=== PATIENT | female | born 1995 | race African-American/Black ===

== ENCOUNTER 2019-10-18 03:52 | Emergency (ER) | payer OTHER, SELFPAY ==
--- NOTE | 2019-10-18 03:59 | ED.GENADULT ---
HPI - General Adult General Chief complaint: Skin/Abscess/Foreign Body Stated complaint: abcess Time Seen by Provider: 10/18/19 03:58 Source: patient Mode of arrival: ambulatory Limitations: no limitations History of Present Illness HPI narrative: Patient presents for irritation to her right buttocks. Patient reports that she had a new sexual partner, is concern for possible sexually transmitted infection. She denies pelvic pain, dysuria or hematuria. She denies vaginal discharge. She does report some itching, burning area near to her right labia. No drainage that she has noticed. No bleeding. Patient reports history of sexual transmitted infection in the past which was treated. No history of genital herpes. Patient reports that she does not believe she is as her last period was 5 days ago. Related Data Allergies Allergy/AdvReac Type Severity Reaction Status Date / Time No Known Allergies Allergy Unverified 02/03/17 19:14 Review of Systems Review of Systems: Narrative: CONSTITUTIONAL: Denies fever GASTROINTESTINAL: Denies abdominal pain, nausea, vomiting GENITOURINARY: Denies dysuria or hematuria. SKIN: Reports irritation to right buttock MUSCULOSKELETAL: Denies back pain PMFSH Past Medical History Medical History (Updated 10/18/19 @ 04:53 by Janet Saini MD) Asthma Surgical History Surgical History (Updated 10/18/19 @ 04:14 by Janet Saini MD) H/O section History of cholecystectomy Social History Social History Gender identity (if verbalized by the patient): Female Exam Narrative: Exam Narrative: GENERAL: Well-appearing, well-nourished, and in no acute distress. HEAD: Normocephalic, atraumatic. EYES: PERRLA and EOMI. NECK: Supple. CHEST:No respiratory distress. HEART: Regular rate and rhythm. No murmur heard. Normal peripheral pulses. ABDOMEN: Nondistended, nontender : Labia majora and minora normal without lesions. Vagina with out blood. No cervical motion tenderness. No adnexal tenderness or fullness bilaterally. Normal, mucoid discharge present. No purulent discharge. Patient has a cluster of papules, that are not currently blistering, no weeping fluid, but are tender to palpation, no erythema, no warmth, no abscess. No drainage. EXTREMITIES: Normal range of motion. No edema. SKIN: Warm, dry, no rash. NEURO: No focal deficits. Alert and oriented x3 Course Course Emergency Course: We will treat patient empirically for sexually transmitted infection given exposure. Her swabs are positive for trichomonas. Additionally, this may be early herpetic lesions, given they are clustered, tender, so we will treat patient with acyclovir. Patient without urinary tract infection. Patient is not . Patient vies follow-up with her personal care assistant, discharged home in stable condition. Vital Signs Vital signs: Vital Signs Temperature 36.1 C L 10/18/19 04:03 Pulse Rate 68 10/18/19 04:03 Respiratory Rate 18 10/18/19 04:03 Blood Pressure 119/67 10/18/19 04:03 Pulse Oximetry 100 10/18/19 04:03 Temperature 36.1 C L 10/18/19 04:03 Pulse Rate 90 10/18/19 04:40 Respiratory Rate 19 10/18/19 04:40 Blood Pressure 128/89 10/18/19 04:40 Pulse Oximetry 100 10/18/19 04:40 Medical Decision Making Vital Signs Vital Signs: Vital Signs Temperature 36.1 C L 10/18/19 04:03 Pulse Rate 68 10/18/19 04:03 Respiratory Rate 18 10/18/19 04:03 Blood Pressure 119/67 10/18/19 04:03 Pulse Oximetry 100 10/18/19 04:03 Temperature 36.1 C L 10/18/19 04:03 Pulse Rate 90 10/18/19 04:40 Respiratory Rate 19 10/18/19 04:40 Blood Pressure 128/89 10/18/19 04:40 Pulse Oximetry 100 10/18/19 04:40 Lab Data Labs: Lab Results 10/18/19 10/18/19 10/18/19 Range/Units 04:17 04:17 04:17 Urine Color Yellow (Yellow) Urine Appearance Clear (Clear) Urine pH 6.0 (5.0-9.0) Ur Specific [place] 1.027 (1.001-1.03
[2019-10-18 04:03] VITALS: BP 119/67; PULSE 68; RESP 18; TEMP 36.1; O2SAT 100
[2019-10-18 04:32] LABS: Add Urine Microscopic? YES; Appearance Urine Clear (Clear); Bilirubin Urine Negative (Negative); Blood Urine 1+ (Negative); Color Urine Yellow (Yellow); Glucose Urine UA Negative (Negative); Ketones Urine Negative (Negative); Leukocyte Esterase Ur Trace LEU/UL (Negative); Mucus Urine Rare /lpf; Nitrate Urine Negative (Negative); Protein Urine Negative (Negative); Specific Grav Ur 1.027 (1.001-1.035); Squamous Epithelial Cell Urine Many /hpf (Few); Urobilinogen Urine Negative mg/dL (<2.0); WBC Urine 0-3 /hpf
[2019-10-18 04:40] VITALS: BP 128/89; PULSE 90; RESP 19; O2SAT 100
[2019-10-18] MEDS: cefTRIAXone 250 MG VIAL IM (04:40)
[2019-10-18] MEDS: AZITHROMYCIN 250 MG TABLET 1000 MG PO (04:40)
== END 2019-10-18 04:40 | disposition home or self-care (01) ==
LOC: ANHED 04:34
PROVIDERS: Emergency Provider Emergency Medicine
DX: A59.00 Urogenital trichomoniasis, unspecified (principal); Z20.2 Contact with and (suspected) exposure to infections with a predominantly sexual mode of transmission
CPT/HCPCS: 81001; 81025; 87070; 87491; 87591; 87808; 96372; 99284; A9270; J0696